=== PATIENT | female | born 1990 | race Hispanic/Latino ===

== ENCOUNTER 2016-11-13 14:50 | Inpatient (IN) | payer OTHER ==
[~2016-11-13] VITALS: Ht 146.7 cm; Wt 76.7 kg
[~2016-11-13 14:50] MED LIST: NOMED; OMEP-113 PO; RANI150T11 PO; REGL PO; SERT25TA6 PO
[2016-11-13] MEDS ORDERED: Lactated Ringer's 1,000 ML IV PRN ×2 (15:19→15:54)
[2016-11-13] MEDS ORDERED: Carboprost 250 mCg/mL Inj IM PRN ×2 (15:20→23:50)
[2016-11-13] MEDS ORDERED: Methylergonovine 0.2 mg/mL Inj IM PRN ×2 (15:20→23:50)
[2016-11-13] MEDS ORDERED: Ondansetron 2 mg/mL 2 mL Inj IVPUSH PRN ×2 (15:20→21:35)
[2016-11-13] MEDS ORDERED: Hemorrhage Kit, Post Partum XX ONE ×3 (15:20→23:50)
[2016-11-13] MEDS ORDERED: Oxytocin 10 Unit/mL Inj IM PRN ×2 (15:20→23:50)
[2016-11-13] MEDS: Lactated Ringer's 1,000 ML IV SCH ×4 (16:54→23:54)
[2016-11-13] MEDS: Oxytocin 30 Units/500 mL LR 30 UNITS in IV Premix 1 EACH IV PRN (16:55)
[2016-11-13] MEDS: Sodium Chloride LOK Flush 10 mL Syringe IVFLUSH PRN ×2 (16:55→20:22)
[2016-11-13 17:00] LABS: Mean Corpuscular Hemoglobin 26.5 pg (27.0-35.0); Mean Corpuscular Volume 79.8 fL (81-100)
[2016-11-13] MEDS ORDERED: CHOL100043 PO (18:38)
[2016-11-13] MEDS ORDERED: PNV1TABL81 PO (18:38)
--- NOTE | 2016-11-13 19:20 | HP ---
[address] [address] HISTORY AND PHYSICAL PATIENT: DELL CAMARILLO : 1990 MR#: [id number] ADMIT: 11/13/2016 JOB ID: [id number] CHIEF COMPLAINT: The patient presented to [facility] for complaint of leaking fluid. HISTORY OF PRESENTING ILLNESS: This is a 26-year-old 4, para 1-1-1-2 at 39 weeks and 6 days with expected date of delivery of November 14, 2016, by last menstrual period and consistent with a nine-week ultrasound. The patient was seen today at the office for routine care. She reported a history of wet underwear since yesterday morning. No history of gush of fluid. Intermittent contractions. No vaginal bleeding. The fluid color was clear. The patient was sent to [facility] for further evaluation. On exam, positive ROM Plus test. Based on the test and the history, the patient was admitted for premature rupture of membranes. PROBLEM LIST DURING THIS : 1. History of delivery at 36-37 weeks after PPROM and induction of labor, followed by a term delivery. 2. Vaginal wall mass at the anterior vaginal wall midline. The patient was referred to the [facility], Dr. Cali. Status post cystoscopy with impression of noncommunicating suburethral cyst or urethral diverticulum with no connection seen on cystoscopy to the urethra. The plan is to aspirate when in labor before delivery. If the mass reoccurs after delivery or it becomes symptomatic, then surgery may be indicated after MRI and a urodynamic study for history of incontinence. 3. Elevated 1 hour GTT but 3 hour GTT was within normal limits. 4. Size more than dates. borderline elvated OTIS earlier in resolved based on October 12, 2016 ultrasound, at 35 weeks and 2 days, OTIS was 14 cm and growth was at 77%, 2903 g, head circumference 36 weeks and 4 days, abdominal circumference 37 weeks. 5. Fetus with renal pelviectasis 9 mm. The plan is to be evaluated postnatally. 6. Group B strep negative on October 12, 2016. PAST OBSTETRIC HISTORY: 1. November 01, 2005: Vaginal delivery at 36-37 weeks after a PROM. Weight 4 pounds. No complications and no epidural. 2. Second was a miscarriage. 3. Third was on April 05, 2009, a spontaneous vaginal delivery at term of a female , 6 pounds, no complications. 4. Fourth is the present . GYNECOLOGIC HISTORY: Last menstrual period February 08, 2016. Regular menstrual cycle. Last menstrual period was regular in time and normal in character and duration, and was not on control. Last Pap smear 2014 at [facility] within normal limits. PAST MEDICAL HISTORY: History of knee pain, history of shoulder strain, history of tension headache, vitamin D deficiency, GERD, depression and was taking sertraline but not currently on any medications, history of fatty liver 2013. PAST SURGICAL HISTORY: Cholecystectomy 2008. FAMILY HISTORY: Diabetes mother and sister. SOCIAL HISTORY: Denies alcohol, smoking, or illicit drug abuse. MEDICATIONS: vitamins and vitamin D. ALLERGIES: No known drug allergies. PHYSICAL EXAMINATION: Vital signs reviewed and within normal limits. General: Alert. Oriented to time, place, and person. Neck: Supple. Chest: Equal air entry bilaterally. No added sounds. Cardiovascular: Regular rate and rhythm. Abdomen: Gravid to palpation. Estimated weight 8 pounds. Lower extremities: +1 edema bilaterally. Normal reflexes. Pelvic: 3 cm, 70%, -2, mid position. Soft. Mena's score of 8. Bedside ultrasound performed to confirm cephalic presentation. Cephalic presentation was confirmed. FHT Category 1, [place]: no regular contractions. LABORATORIES: labs: O positive, rubella immune, RPR nonreactive, hepatitis B surface antigen nonreactive, HIV nonreactive. Urine culture no growth. Multiple organism, most likely contamination. Chlamydia screen and Gonorrhea screen March 14, 2016 negative. Group B strep screen negative on October 12, 2016. Pap smear within normal limits [facility] at [facility]. Diabetes screen 151. Three-hour screen within normal limits. Fasting 75, 1 hour of 149, 2 hours of 121, 3 hours of 108. Hematocrit August 04, 2016 was 35.5%. ASSESSMENT: 1. This is a 26-year-old 4, para 1-1-1-2 at 39 weeks and 6 days dated by last menstrual period and consistent with a nine-week ultrasound, with expected date of delivery of November 14, 2016. 2. Premature rupture of membranes and no signs of active labor. 3. Vaginal wall mass that will be aspirated when in active labor. 4. renal pelviectasis that to be evaluated postnatally. 5. Size more than dates. Growth ultrasound at 35 weeks estimated to be at 77th percentile and WNL OTIS. 6. History of depression controlled without medication. PLAN: Admission. An order for admission with labs was placed. Plan of care was discussed with the patient. Induction of labor with Pitocin is indicated secondary to premature rupture of membranes for over 24 hours. Estimated time of rupture was 7 a.m. on November 12, 2016. Risks and benefits and alternatives of induction were reviewed with the patient. All questions were answered. Informed consent was signed. Will proceed with Pitocin for induction. DARYD
[2016-11-13] MEDS: fentaNYL-PF 50 mCg/mL 2 mL Inj IVPUSH PRN (20:28)
[2016-11-13] MEDS ORDERED: Lactated Ringer's 500 ML IV ONE (21:35)
[2016-11-13] MEDS ORDERED: fentaNYL 2 mCg/mL-Bupiv 0.125% 100 ML EPIDURAL SCH ×2 (21:35→22:45)
[2016-11-13] MEDS ORDERED: Atropine 1 mg/10 mL (Code) Syringe IVPUSH PRN (21:35)
[2016-11-13] MEDS ORDERED: EPHEDrine Sulfate 50 mg/mL Inj IVPUSH PRN (21:35)
--- NOTE | 2016-11-13 21:38 | PCM.HPANE ---
Patient Data Surgeon Admitting Provider:Izzy Griffin MD Attending Provider:Xiomara Tilley MD Primary Care Physician:Izzy Griffin MD Other Provider:Maykel Moralez Anesthesia Reason for Visit LABOR LABOR Ht/WT & BMI Body Mass Index Allergies Coded Allergies: No Known Allergies (Verified , 10/31/05) Uncoded Allergies: No Known Allergies (Allergy, Mild, 10/31/05) Diabetes History Hx Diabetes?: No Medications Reported Medications Cholecalciferol (Vitamin D3) (Vitamin D)1,000 Unit Tablet2,000 Unit PO DAILY #1 BOTTLE Ref 0 11/13/16 Pnv No.122/Iron/Folic Acid ( Multi Tablet)27 Mg Iron-800 Mcg Tablet1 Each PO DAILY 11/13/16 No Historical Medication Ea 02/12/14 Discontinued Reported Medications Omeprazole Magnesium (Omeprazole)20 Mg Capsule.dr20 Mg PO DAILY 30 Days Ref 0 07/24/14 Ranitidine HCl (Ranitidine)150 Mg Qsaaca086 Mg PO BID 30 Days Ref 0 07/24/14 Metoclopramide 5 Mg/5 Ml Syrup10 Mg PO QID PRN For Nausea/Vomiting Ref 0 07/24/14 Sertraline HCl (Sertraline)25 Mg Opzonv63 Mg PO DAILY 30 Days Ref 0 06/22/14 History History of ENT Problems?: No Hx of Heart Problems?: No Cardiovascular History: Denies:: Congestive Heart Failure Hypertension Hx of Respiratory Problem?: No Respiratory History: Denies:: Tuberculosis Hx Neurologic Problems?: No Hx of GI Problems?: Yes Hx of Psycho/Social Problems?: No Hx Surgeries?: Yes (maria [place] carmen) Hx Any Other Health Problems?: No History Blood Transfusions: Denies:: Blood Transfuse Reaction Blood Transfusions Hx Diabetes: No Hx Alcohol Use: NoHx Substance Use: No Smoking Status: Never Smoker Have You Smoked inLast 12 mo: No Stop/Bang Risk Assessment Category Category 1A: Patient has history of documented sleep apnea, and HAS NOT received any narcotic, sedative or anesthesia administration during this stay. Category 1B: Patient has history of documented sleep apnea, and HAS received any narcotic , sedative or anesthesia administration during this stay Category 2: Patient has SUSPECTED Obstructive Sleep Apnea, and HAS received any narcotic , sedative or anesthesia administration during this stay. Category 3: Patient has SUSPECTED Obstructive Sleep Apnea and HAS NOT received narcotic, sedative or anesthesia administration during this stay. Category 4: Outpatient in Procedural Areas with known sleep apnea or who screen positive for High Risk via the STOP/BANG questionnaire. Exam Exam General Appearance: Alert, Oriented X3 HEENT/AIRWAY: MP 2, Neck Movement (FROM) Lungs: Clear to Auscultation, Clear to Percussion Heart: Exam Unremarkable, Regular Rate/Rhythm Meds/Labs/Diagnostics Admission Meds Current Medications Lactated Ringer's (Lr) 1,000 ml @ 125 mls/hr Q8H IV Last administered on t 16:54; Start 11/13/16 at 15:54 Labs Test 11/13/16 16:45 White Blood Count 6.1th/mm3 (3.8-10.1) Red Blood Count 4.60mil/mm3 (3.90-5.20) Hemoglobin 12.2g/dL (12.0-15.6) Hematocrit 36.7% (35.0-46.0) Mean Corpuscular Volume 79.8fL (81-100) Mean Corpuscular Hemoglobin 26.5pg (27.0-35.0) Mean Corpuscular Hemoglobin Concent 33.2% (32.0-37.0) Red Cell Distribution Width 17.1% (12.3-15.4) Platelet Count 205bil/L (150-400) Plan Impression Patient chart reviewed, patient interviewed and anesthestic plan with risks, benefits, and alternatives discussed, and informed consent obtained. ASA Physical Status: ASA2 Mod Systemic Disease Anesthetic Plan: Epidural Bene/Risks/Altern/Consents: Yes HP Complete Prior to Induction: Yes Gino Corado MD Nov 13, 2016 21:38
[2016-11-13] MEDS ORDERED: Benzocaine (Dermoplast) 20% 60 Gm Spray TOPICAL PRN (23:50)
[2016-11-13] MEDS ORDERED: LANOlin HPA 7 Gm Ointment TOPICAL PRN (23:50)
[2016-11-13] MEDS ORDERED: Witch Hazel-Glycerin Pads TOPICAL PRN (23:50)
[2016-11-14] MEDS: Sodium Chloride LOK Flush 10 mL Syringe IVFLUSH SCH ×3 (00:30→16:30)
[2016-11-14] MEDS: fentaNYL-PF 50 mCg/mL 2 mL Inj IVPUSH PRN (01:46)
[2016-11-14] MEDS: Oxytocin 30 Units/500 mL LR 30 UNITS in IV Premix 1 EACH IV PRN (01:49)
[2016-11-14] MEDS: oxyCODONE-Acetamin 5-325 mg Tablet PO PRN ×4 (02:56→23:32)
--- NOTE | 2016-11-14 05:30 | OP ---
[address] [address] OPERATIVE REPORT PATIENT: DELL CAMARILLO : 1990 MR#: [id number] ADMIT: 11/13/2016 JOB ID: [id number] DATE OF SURGERY: 11/13/2016 at 2333. Placenta delivered at 2340. DELIVERY REPORT: PREOPERATIVE DIAGNOSIS(ES): 1. Intrauterine at 39 weeks and 6 days. 2. Premature rupture of membranes. 3. Vaginal wall mass. 4. renal pelviectasis. 5. Size more than date. Estimated weight 77 percentile at 35 weeks.History of borderline polyhydramnios with OTIS of 23, resolved at 35 weeks scan. OTIS 14 cm. 6. History of depression controlled without medications. POSTOPERATIVE DIAGNOSIS(ES): 1. S/P NVD at 39 weeks and 6 days. 2. Premature rupture of membranes. 3. Vaginal wall mass. 4. renal pelvocaliectasis. 5. Size more than date. Estimated weight 77 percentile at 35 weeks.History of borderline polyhydramnios with OTIS of 23, resolved at 35 weeks scan. OTIS 14 cm. 6. History of depression controlled without medications. 7. hemorrhage. PROCEDURE: 1. Spontaneous vaginal delivery with no laceration. 2. Aspiration of suburethral vaginal wall mass prior to delivery. SURGEON: Izzy Griffin MD. COMPLICATIONS: None. OUTCOME: Male delivered in cephalic presentation with Apgars of 9 and 9 at one and five minutes respectively. Weight 3436 g ,equivalent to 7 pounds 9 ounces. Placenta delivered intact with three-vessel cord. ESTIMATED BLOOD LOSS: 350 mL followed by a hemorrhage approximately 1 hour after the delivery with additional 600 mL of blood loss. Total estimated blood loss 950 mL. COMPLICATIONS: hemorrhage. SPECIMEN: Aspirated fluid from the cyst was sent to pathology for evaluation. DESCRIPTION OF PROCEDURE: This is a 26-year-old 4, para 1-1-1-2 who presented at 39 weeks and 6 days with a history of premature rupture of membranes for over 24 hours with no signs of active labor. The patient was started on Pitocin. On admission cervix was 3 cm, 70%, and -2 with position soft with Mena score of 8. So patient was started on Pitocin for favorable cervix and membrane rupture status. The patient progressed in labor to be found to be completely dilated at 2257. The vaginal wall mass was prepped with Betadine x3. Then the fluid was aspirated, approximately 10 cc was aspirated and then an additional 10 cc was drained. Then, patient pushed effectively to deliver via spontaneous vaginal delivery over intact perineum under epidural anesthesia. Delivered a live born male infant in cephalic presentation with Apgars 9 and 9. There was no nuchal cord and no shoulder dystocia. The was placed on the maternal abdomen. Delayed cord clamp was performed after 1 minute. Cord blood was collected for blood typing and placenta delivered spontaneously intact with three-vessel cord. Pitocin was started. Fundal massage was performed. The 800 mcg of Cytotec was placed rectally prophylactically for bleeding secondary to history of uterine distention and risk of hemorrhage. Estimated blood loss at this point, was 350 mL. All instrument and needle counts were correct at this time. and mother were recovering in the delivery room. Called into the patient's room one hour later for gush of bleeding. Uterus was massaged. Fundus was firm but lower uterine atony was palpable by bimanual exam with large clots removed from the vagina and from the cervical os. The patient was given one dose of Methergine and one dose of Hemabate. A second bag of Pitocin with additional 30 units was started. The bleeding slowed down at this time. The uterus was firm. The patient has remained hemostatic additional, 600 mL to delivery blood loss was estimated with a total of 950 mL at this point. Blood pressure 121/73, heart rate 90, 98% saturation on room air. Initial hemoglobin at admission was 12.2 and hematocrit was 36.7%. Continue close monitoring. Ospina catheter to be inserted to monitor I's and O's. If bleeding starts again then we will initiate another IV access. Continue to monitor vital signs and serial H and H. MTDD
[2016-11-14] MEDS: Lactated Ringer's 1,000 ML IV SCH ×4 (05:35→13:35)
[2016-11-14 07:17] LABS: Mean Corpuscular Hemoglobin 26.5 pg (27.0-35.0); Mean Corpuscular Volume 80.9 fL (81-100)
--- NOTE | 2016-11-14 07:30 | PCM.PNOBPP ---
Subjective Date of Service Nov 14, 2016 Lochia: Normal Pain Management: PO pain meds Gastrointestinal: Good Appetite, No N/V Postop Activity: Ambulating in Room Only Labs Laboratory Tests 11/14/16 06:40: Exam Vital Signs Vital Signs: VS reviewed, stable Exam Abdomen: Fundus firm Extremities: No edema General: Alert, Oriented X3 OB Post Assessment/Plan Assessment This is a 26-year-old 4, para 2-1-1-3 1. PPD#1 S/P NVD presented with PROM and was induced with Pitocin. 2. Vaginal wall mass S/P aspiration 3. Post Hemorrhage total EBL 950 ml CBC pending, H/H ordered for 1200 4. renal pelvocaliectasis cedric be the evaluated postnatally. 5. History of depression controlled without medication. 6. Hx of positive PPD 2008 and Rx for 6 months asymptomatic, CXR pending. Izzy Griffin MD Nov 14, 2016 07:15
[2016-11-14] MEDS: Ascorbic Acid 500 mg Tablet PO SCH ×2 (08:01→17:30)
--- NOTE | 2016-11-14 10:48 | DRSVH ---
PROCEDURE: X-RAY CHEST ONE VIEW, PORTABLE ([id number]) INDICATIONS: Follow up T.B TECHNIQUE: One view of the chest was acquired. COMPARISON: [facility], , CHEST 2VW, 02/12/2014, 2:23. FINDINGS: Surgical changes and devices: None. Lungs and pleura: No pleural effusions or pneumothorax. Lungs are clear. Mediastinum: Mediastinal contours appear normal. Heart size is normal. Bones and chest wall: No suspicious bony lesions. Overlying soft tissues appear unremarkable. IMPRESSION: No active pulmonary tuberculosis identified radiographically. Dictated by: Rafa Gomez [facility] Interpreted: Harshla Malik MD on 11/14/2016 at 10:47 Transcribed by: BRI on 11/14/2016 at 10:47 Approved by: Harshal Malik M.D. on 11/14/2016 at 17:46
[2016-11-15] MEDS: Lactated Ringer's 1,000 ML IV SCH ×2 (07:49→09:51)
[2016-11-15] MEDS: Sodium Chloride LOK Flush 10 mL Syringe IVFLUSH SCH (08:30)
[2016-11-15] MEDS ORDERED: FERR-74 PO (09:21)
[2016-11-15] MEDS ORDERED: DOCU-41 PO (09:21)
[2016-11-15] MEDS ORDERED: OXYC1TAB24 PO (09:21)
[2016-11-15] MEDS ORDERED: Ascorbic Acid PO (09:21)
[2016-11-15] MEDS ORDERED: IBUP-1827 PO (09:21)
--- NOTE | 2016-11-15 09:32 | PCM.DIOB ---
Obstetrical Disch Instruction Date of Service: Nov 15, 2016 Dates of Hospitalization Date of Hospital Admission Nov 13, 2016 at 15:08 Providers Admitting Physician: Izzy Griffin MD Primary Care Physician: Izzy Griffin MD Attending Physician: Izzy Griffin MD Discharge Diagnosis Discharge Diagnosis Normal vaginal delivery Post hemorrhage Anemia Problems: Diet Discharge Diet: No restrictions Activity Discharge Activity-General: Pelvic Rest for 6 weeks (no sex, douching nor tampon. ), Balance rest and activity, No lifting >10 pounds for 4-6 weeks Dressing and Incisional Care Hygiene: May shower, Perineal care Follow Up Plan Follow-up Provider (F9): Izzy Griffin MD Follow-up appointment: Weeks (2 weeks ) Call your provider for: Fever or Chills, Shortness of breath, Heavy vaginal bleeding, Heavy bleeding, Epigastric pain, Excessive constipation, Vaginal discomfort, Red painful breasts, Other (Headache, change in vision, epigastric pain, nausea and vomiting, leg swelling. ) Izzy Griffin MD Nov 15, 2016 09:32
[2016-11-15] MEDS: Ascorbic Acid 500 mg Tablet PO SCH (09:45)
[2016-11-15 11:36] VITALS: BP 98/54; PULSE 80; RESP 16
--- NOTE | 2016-11-15 15:09 | PCM.DC.OB ---
Obstetrical Discharge Summary Date of Service Nov 15, 2016 Date of hospital admission Nov 13, 2016 at 15:08 Date of Discharge: Nov 15, 2016 Providers Admitting Physician: Randal Han MD Primary Care Physician: Randal Han MD Attending Physician: Randal Han MD Diagnosis at Time of Discharge Normal vaginal delivery Post hemorrhage Anemia Problems: Hospital Course: This is a 26-year-old 4 now para 2-1-1-3 who presented at 39 weeks and 6 days with a history of premature rupture of membranes for over 24 hours with no signs of active labor. The patient was started on Pitocin and delivered on at 2333 via after aspiration of suburethral vaginal cyst. OUTCOME: Male infant delivered in cephalic presentation with Apgars of 9 and 9 at one and five minutes respectively. Weight 3436 g ,equivalent to 7 pounds 9 ounces. Placenta delivered intact with three-vessel cord. See delivery note for details. DISCHARGE DAY EXAM: day number 2, patient is ambulating, tolerating regular diet without nausea or vomiting and voiding without difficulty. Pain was well controlled. No chest pain, no nausea or vomiting, no headache or change in vision. VS: reviewed and stable. General: AOX3 Resp: EAE B/L CVS: RRR, S1+S2+0 Abd: Fundus firm below the umbilicus. Lochia: normal. Lext: no edema. LABS: CBC Test 11/14/16 06:40 11/15/16 07:50 White Blood Count 13.0th/mm3 (3.8-10.1) Red Blood Count 3.93mil/mm3 (3.90-5.20) Mean Corpuscular Volume 80.9fL (81-100) Mean Corpuscular Hemoglobin 26.5pg (27.0-35.0) Mean Corpuscular Hemoglobin Concent 32.7% (32.0-37.0) Red Cell Distribution Width 16.6% (12.3-15.4) Platelet Count 170bil/L (150-400) Hemoglobin 9.6g/dL (12.0-15.6) Hematocrit 29.7% (35.0-46.0) labs: labs: O positive, rubella immune, RPR nonreactive, hepatitis B surface antigen nonreactive, HIV nonreactive. Chlamydia screen March 14, 2016 negative. Gonorrhea screen March 14, 2016 negative. Group B strep screen negative on October 12, 2016. [facility] smear [facility] normal limits [facility] at [facility]. Diabetes screen 151. Three-hour screen within normal limits. Fasting 75, 1 hour of 149, 2 hours of 121, 3 hours of 108. Hematocrit August 04, 2016 was 35.5%. Disposition: home. Discharge Condition: stable. Diet Discharge Diet: No restrictions Activity Discharge Activity-General: Pelvic Rest for 6 weeks (no sex, douching nor tampon. ), Balance rest and activity, No lifting >10 pounds for 4-6 weeks Dressing and Incisional Care Hygiene: May shower, Perineal care Follow Up Plan Follow-up Provider (F9): Randal Han MD Follow-up appointment: Weeks (2 weeks ) Call your provider for: Fever or Chills, Shortness of breath, Heavy vaginal bleeding, Heavy bleeding, Epigastric pain, Excessive constipation, Vaginal discomfort, Red painful breasts, Other (Headache, change in vision, epigastric pain, nausea and vomiting, leg swelling. ) ([Ascorbic Acid]) 500 MG TABLET 500 MG PO DAILY Prescribed by: RANDAL HAN MD Cholecalciferol (Vitamin D3) (Vitamin D) 1,000 Unit Tablet 2,000 UNIT PO DAILY ( Reported) Last Taken: UNKNOWN on Unknown Date & Time Docusate Sodium (Colace) 100 Mg Capsule 100 MG PO DAILY Prescribed by: RANDAL HNA MD Ferrous Sulfate (Feosol) 325 Mg Tablet 325 MG PO DAILY Prescribed by: RANDAL HAN MD Ibuprofen (Ibuprofen) 600 Mg Tablet 600 MG PO Q6H PRN PRN For Mild Pain Prescribed by: RANDAL HAN MD No Historical Medication (No Historical Medication) Ea (Reported) Pnv No.122/Iron/Folic Acid ( Multi Tablet) 27 Mg Iron-800 Mcg Tablet 1 EACH PO DAILY (Reported) Last Taken: UNKNOWN on Unknown Date & Time oxyCODONE-Acetaminophen 5-325 mg (oxyCODONE-Acetaminophen 5-325 mg) 1 Each Tablet 1-2 TAB PO Q4H PRN PRN For Pain Prescribed by: MD Gaby COULTER Omaima A MD Nov 15, 2016 15:08
--- NOTE | 2016-11-19 14:58 | PATH ---
SURGICAL PATHOLOGY Attending Physician:Izzy Griffin CASE STATUS: Signed Out PATIENT NAME: DELL CAMARILLO PID: [id number] : 1990 DATE COLLECTED:11/13/2016 00:00 SPECIMEN: Vaginal Wall Cyst Fluid CLINICAL HISTORY: Vaginal Wall Cyst Fluid ICD-10 code not given FINAL DIAGNOSIS: VAGINAL WALL CYST FLUID ASPIRATE CYTOLOGY: NEGATIVE FOR MALIGNANT CELLS. PERIPHERAL BLOOD CELLS AND RARE BENIGN SQUAMOUS EPITHELIAL CELLS IDENTIFIED. ICD10 CODE N89.8 GROSS DESCRIPTION: Received fresh on 11/16/2016 is approximately 10 cc of cloudy yellow fluid. Prepared are one cell block and one ThinPrep slide. Vo MICRO DESCRIPTION: Examined are one ThinPrep cytology slide and one H&E-stained cell block slide. These show many peripheral blood cells and rare benign squamous epithelial cells. No atypical or malignant cells identified. ICD-9 CODES: CPT CODES: 1: 81528, 36839 Electronically Signed Out Pennie Barfield MD [facility]ly [facility] [address], [place] [address] Technical component performed at [facility], [facility] [address], [place], [address]
== END 2016-11-15 16:50 | disposition home or self-care (01) | DRG 560 ==
LOC: FBCO 14:50 → FBC 15:08
PROVIDERS: ADMIT Obstetrics & Gynecology; ATTEND Obstetrics & Gynecology
PROC: 10E0XZZ Delivery of Products of Conception, External Approach (ICD-10-PCS; principal; 2016-11-13)
PROC: 0U9 Female Reproductive System, Drainage (ICD-10-PCS; 2016-11-13)
DX: O42.92 Full-term premature rupture of membranes, unspecified as to length of time between rupture and onset of labor (principal); O72.1 Other immediate postpartum hemorrhage; O75.89 Other specified complications of labor and delivery; N89.8 Other specified noninflammatory disorders of vagina; O99.02 Anemia complicating childbirth; Z3A.39 39 weeks gestation of pregnancy; Z37.0 Single live birth

== ENCOUNTER 2017-02-07 10:01 | Day surgery (SDC) | payer MEDICAID ==
[~2017-02-07] VITALS: Ht 149.9 cm; Wt 64.1 kg
[2017-02-07] VITALS (10 sets, daily range): BP systolic 99–118; BP diastolic 58–73; PULSE 69–100; RESP 13–20; O2SAT 97–100
[2017-02-07] MEDS: Lactated Ringer's 1,000 ML IV SCH ×6 (05:00→23:46)
[~2017-02-07 10:01] MED LIST changes: +CeFAZolin Inj 2 GM in IV Premix 1 EACH IV ONE; -NOMED; -OMEP-113 PO; -RANI150T11 PO; -REGL PO; -SERT25TA6 PO
[2017-02-07] MEDS ORDERED: Ondansetron 2 mg/mL 2 mL Inj ONE (10:02)
[2017-02-07] MEDS ORDERED: Dexamethasone 4 mg/mL Inj ONE (10:02)
[2017-02-07] MEDS ORDERED: Propofol 10,000 mCg/mL 20 mL Inj ONE (10:02)
[2017-02-07] MEDS ORDERED: Rocuronium 10 mg/mL 5 mL Inj ONE (10:02)
[2017-02-07] MEDS ORDERED: Lidocaine PF 1% 30 mL Inj ONE (10:02)
[2017-02-07] MEDS ORDERED: fentaNYL-PF 50 mCg/mL 2 mL Inj ONE (10:02)
[2017-02-07] MEDS ORDERED: METHYLENE BLUE 0.5% XX PRN (10:20)
[2017-02-07] MEDS ORDERED: Lactated Ringer's 1,000 ML IV SCH (12:07)
[2017-02-07] MEDS ORDERED: Lactated Ringer's 500 ML IV PRN (12:07)
--- NOTE | 2017-02-07 12:07 | PCM.HPANE ---
Patient Data Date of Service: February 07, 2017 ([id number]) Surgeon Admitting Provider: Attending Provider:Alexis Cali MD Primary Care Physician:Ruben Iglesias MD Other Provider:Maykel Moralez Anesthesia Reason for Visit Urethral Cyst, Urethral Diverticulum Ht/WT & BMI Height (Feet): 4 Height (Inches): 11 Weight (Kilograms): 64.1 Body Mass Index 28.00 Allergies Coded Allergies: No Known Allergies (Verified , 10/31/05) Past Anesthesia History Anesthesia History: Denies:: Anesthesia Reactions ("hitting" after anesthesia) , Fam Anesthesia Reaction Diabetes History Hx Diabetes?: No MRSA MRSA: No Medications Hypertension Medication: No Home Meds Incl Beta Oriana: No Discontinued Reported Medications Cholecalciferol (Vitamin D3) (Vitamin D)1,000 Unit Tablet2,000 Unit PO DAILY #1 BOTTLE Ref 0 11/13/16 Pnv No.122/Iron/Folic Acid ( Multi Tablet)27 Mg Iron-800 Mcg Tablet1 Each PO DAILY 11/13/16 No Historical Medication Ea 02/12/14 Discontinued Scripts Ibuprofen 600 Mg [id number] Mg PO Q6H PRN For Mild Pain #100 TABLET Ref 0 Prov:Izzy Griffin MD 11/15/16 Ferrous Sulfate (Feosol)325 Mg [id number] Mg PO DAILY #90 TABLET Ref 0 Prov:Izzy Griffin MD 11/15/16 [Ascorbic Acid] (Vitamin C)500 MG TABLET No Conflict [id number] Mg PO DAILY #90 Ref 0 Prov:Izzy Griffin MD 11/15/16 Docusate Sodium (Colace)100 Mg [id number] Mg PO DAILY #30 CAPSULE Prov:Izzy Griffin MD 11/15/16 oxyCODONE-Acetaminophen 5-325 mg 1 Each Tablet1-2 Tab PO Q4H PRN For Pain #20 TABLET Prov:Izzy Griffin MD 11/15/16 History History of ENT Problems?: No HEENT History: Denies:: Cataracts Glaucoma Hearing Problem Denture Type: None Teeth Condition: Within Normal Limits Hx of Heart Problems?: No Cardiovascular History: Denies:: AICD Abdominal Aortic Aneurism Atrial Fibrillation Chest Pain Congestive Heart Failure Coronary Artery Disease Edema Heart Murmur Hypertension Irregular Heartbeat Pacemaker Peripheral Vascular Rheumatic Fever Thrombophlebitis Hx of Respiratory Problem?: Yes Respiratory History: Positive for:: Tuberculosis (treated in 2006- ) Denies:: Asthma COPD Emphysema Oxygen Administration Pneumonia Use of C-PAP Machine Use of Inhalers / NEBS Hx Neurologic Problems?: No Neurological History: Denies:: CVA Dementia Dizziness Headaches Multiple Sclerosis Parkinson's Disease Seizures TIA Hx of GI Problems?: Yes Hx of Problems?: No Genitourinary History: Denies:: Kidney Stones Urinary Tract Infection Other Pertinent History: 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 Skin History: Denies:: History Skin Disorders? Pressure Ulcers Hx Musculoskeletal Problems?: Yes Musculoskeletal History: Positive for:: Musculoskeletal Trauma (little bit of back pain since childbirth 10/2016) Denies:: Back Injury Fibromyalgia Myasthenia Gravis Osteoarthritis Hx of Psycho/Social Problems?: No Psycho Social History: Denies:: Anxiety Hx Depression Hx Surgeries?: Yes (maria del carmen, ) Hx Any Other Health Problems?: Yes Other History: Denies:: Cancer Thyroid Disease History Blood Transfusions: Positive for:: Accept Blood Products? Denies:: Blood Transfuse Reaction Blood Transfusions Hx Diabetes: No Hx Alcohol Use: NoHx Substance Use: No Smoking Status: Never Smoker Have You Smoked inLast 12 mo: No Stop/Bang S-Snoring: Do You Snore Loudly: No T-Tired: feel tired, fatigued: No O-Obsered: Observed not breath: No P-Blood Pressure: treated: No B- Body Mass Index > 35 kg/m2: No A- Age over 50: No N- Neck Large Circumference: No G- Gender Male: No ANTONELLA Total Score: 0 ANTONELLA Risk Assessment: Low Risk, <3 Yes Risk Assessment Category Category 1A: Patient has history of documented sleep apnea, and HAS NOT received any narcotic, sedative or anesthesia administration during this stay. Category 1B: Patient has history of documented sleep apnea, and HAS received any narcotic , sedative or anesthesia administration during this stay Category 2: Patient has SUSPECTED Obstructive Sleep Apnea, and HAS received any narcotic , sedative or anesthesia administration during this stay. Category 3: Patient has SUSPECTED Obstructive Sleep Apnea and HAS NOT received narcotic, sedative or anesthesia administration during this stay. Category 4: Outpatient in Procedural Areas with known sleep apnea or who screen positive for High Risk via the STOP/BANG questionnaire. Exam Exam Vital Signs Vital Signs Date Time Temp Pulse Resp B/P Pulse Ox O2 Delivery O2 Flow Rate FiO2 02/07/17 10:26 36 77 20 107/60 97 Room Air General Appearance: Alert, Oriented X3, Cooperative HEENT/AIRWAY: MP 1 Lungs: Clear to Auscultation Heart: Exam Unremarkable Meds/Labs/Diagnostics Admission Meds Current Medications Lactated Ringer's (Lr) 1,000 ml @ 120 mls/hr Q8H20M IV Last administered on t 10:14; Start 02/07/17 at 05:00; Stop 02/07/17 at 13:19 Labs Test 02/07/17 10:40 Hemoglobin 13.3g/dL (12.0-15.6) Hematocrit 38.2% (35.0-46.0) Sodium Level 139mEq/L (134-144) Potassium Level 4.0mEq/L (3.5-5.2) Chloride Level 102mEq/L (97-108) Carbon Dioxide Level 23mmol/L (18-29) Blood Urea Nitrogen 9mg/dL (6-20) Creatinine 0.35mg/dL (0.57-1.00) Estimat Glomerular Filtration Rate 320mL/min (>59) Glucose Level 92mg/dL (60-99) Calcium Level 8.9mg/dL (8.5-10.1) Plan Impression Patient chart reviewed, patient interviewed and anesthestic plan with risks, benefits, and alternatives discussed, and informed consent obtained. NPO per Anesth. Guidelines: Yes ASA Physical Status: ASA2 Mod Systemic Disease Anesthetic Plan: GA Bene/Risks/Altern/Consents: Yes HP Complete Prior to Induction: Yes Lucius Sandy MD February 07, 2017 12:07
[2017-02-07] MEDS ORDERED: Phenylephrine 10,000 mCg/mL Inj IVPUSH PRN (12:10)
[2017-02-07] MEDS ORDERED: HYDROmorphone 1 mg/mL Inj IVPUSH PRN (12:10)
[2017-02-07] MEDS ORDERED: Dexamethasone 4 mg/mL Inj IVPUSH PRN (12:10)
[2017-02-07] MEDS ORDERED: MetoCLOpramide 5 mg/mL 2 mL Inj IVPUSH PRN ×2 (12:10→14:45)
[2017-02-07] MEDS ORDERED: Ondansetron 2 mg/mL 2 mL Inj IVPUSH PRN ×2 (12:10→14:45)
[2017-02-07] MEDS ORDERED: fentaNYL-PF 50 mCg/mL 2 mL Inj IVPUSH PRN (12:10)
[2017-02-07] MEDS ORDERED: EPHEDrine Sulfate 50 mg/mL Inj IVPUSH PRN (12:10)
[2017-02-07] MEDS ORDERED: Lidocaine 1%-Epi 1:100,000 20 mL Inj INJ ONE (12:55)
[2017-02-07] MEDS ORDERED: diphenhydrAMINE 25 mg Capsule PO PRN (14:45)
[2017-02-07] MEDS ORDERED: Alum-Mag Hydrox-Simeth 30 mL Suspension PO PRN (14:45)
[2017-02-07] MEDS ORDERED: Acetaminophen IV 1,000 MG in IV Premix 1 EACH IV PRN (14:45)
--- NOTE | 2017-02-07 14:51 | PCM.ANEP1 ---
Post Anesthesia PACU Phase 1 Assessment Vital Signs 100, 100%, 115/69, 16, 36.5 Vital Signs Date Time Temp Pulse Resp B/P Pulse Ox O2 Delivery O2 Flow Rate FiO2 02/07/17 10:26 36 77 20 107/60 97 Room Air Anesthetic Administered: GA Level of Alertness: Awake, talking POLK's with Equal Strength: Yes Pain: No Nausea or Vomiting: No CV Function and Hydration: Yes Airway Device: NONE Oxygen Delivery: Simple Mask Lungs: Clear to Auscultation Dermatome Level: Full Sensation Summary UNEVENTFUL GETA PACU Phase 2 Assessment Complications: No Follow up Care: No Patient Instructions Provided: N/A Lucius Sandy MD February 07, 2017 14:51
--- NOTE | 2017-02-07 16:15 | NUR ---
Post Op Pt arrived to [facility] rm 1011 at approx 1555. Rec'd report from Zain in PACU. Pt arrived via gurney and was able to scoot herself over to the hospital bed. pt is a&ox3, drowsy, but answers questions, denies pain or nausea. Ospina patent and draining to gravity, small amount of serous/sang fluid on ron pad. IV running LR at 125mls/hr. Pt oriented to room and call light. Bed is down and in locked position. Encouraged pt to take small sips of water to start to help avoid nausea.
[2017-02-07] MEDS: oxyCODONE-Acetamin 5-325 mg Tablet PO PRN (17:17)
--- NOTE | 2017-02-07 18:30 | PCM.SURGOP ---
Surgical Operative Report Date of Service: February 07, 2017 Pre Operative Diagnosis suburethral cyst Post Operative Diagnosis same Procedure: Excision of urethral cyst, cystourethroscopy Surgeon and Jewel Stripper: Surgeon: Alexis Cali MD Assistants: Izzy Garcia MD Indication for Procedure She had a vaginal on 11/13/16. The urethral cyst was aspirated during the second stage of labor. She complains of recurrece of the urethrovaginal mass for several months now. She is sexually active. She denies cyst pain, cyst rupture, vaginal discharge, incontinence, dysuria, fever or pain. She feels the size of the mass is the same size as before. She has a history of urge incontinence which predated the onset of the mass. She denies urinary retention. Denies hx of STD's. Urine cultures for GC and Chl are negative. Urodynamics did not reveal stress incontinence. Both in-office cystoscopy and Pelvic MRI did not reveal the presence of a diverticular connection. I consented her for a repair of urethral diverticulum (ie. partial ablation) or excision of suburethral cyst. She may also require a Martius fat pad transposition if extra tissue layers are needed for adequate closure. The patient signed the consent form. She agreed with the risks, benefits, and alternatives to surgery. The risks included but not limited to recurrence or persistence of urethral cyst, development of incontinence, development of voiding dysfunction, development of urinary urgency, urgency incontinence, frequency, and need for intermittent self-catheterization or prolonged indwelling catheterization, injury to other organs including bladder, urethra, vulva, nerves or blood vessels. Need for blood transfusion, need for fistula repair. Development of vaginal scarring, dyspareunia, recurring pain, hematoma formation, urinary tract infection, cellulitis, necrotizing fascitis, and medical risks including myocardial infarction, stroke or VTE. The patient understood the risks and benefits and consented to surgery. Findings: see dictation Procedure Details SURGICAL TECHNIQUE: The patient was brought to the operating room and was placed under general anesthesia. She was prepped and draped in the normal fashion for vaginal surgery with the legs in Yellofin stirrups. She was given a dose of IV ancef preoperatively. Cystourethroscopy was first performed. Examination of the urethra revealed no obvious diverticular connection between the cyst and the urethra despite firmly milking the cyst. 1% lidocaine with one in 100,000 of epinephrine was infiltrated along with vagina overlying the urethral cyst. The Cyst was approximately 3 to 4 cm in diameter. An inverted U incision on the anterior vaginal wall was made using point cautery. Using sharp dissection with Metzembaum scissors, the anterior vaginal wall was mobilized off the cyst wall. Then a midline vertical incision was made into the ron-urethral fascia. Sharp dissection was used to create two flaps of periurethral fascia which would be used later for closure. The urethral cyst was then entered which liberated clear serous fluid. The contents of the cyst was examined. Minor sacculations were noted. These were incised to allow a gloved finger to be inserted to the floor of the cyst. There was no diverticular connection seen. The cyst was completely excised from its fascial base attachments using sharp dissection. The specimen was sent to pathology. We proceeded with cystoscopy. Re-examination of the urethra did not reveal any presence of a urethral defect. The Periurethral fascia was layed down and sutured in a "vest over pants" fashion using 2-0 Vicryl in an interrupted fashion. Hemostasis was achieved by using point cautery as well as fibrin solution. Finally the vagina was reapproximated using 3-0 Vicryl suture in an interrupted fashion. The estimated blood loss was 50 mL. There were no complications. A 16 Hungarian catheter was left indwelling. All sponges in instruments were accounted for. She was taken to the recovery room in stable condition. Complications There were no periprocedural complications identified. Surgical Specimen Removed: Yes Specimen sent to Pathology: Yes Surgical Specimen description: urethral cyst Anesthetic Plan: GA Grafts, Implants: None Output, Estimated Blood Loss: 50 (ml EBL) Blood Administration during lopez: No Drains: None Catheters: Urethral 2 Way Ospina Post Operative Plan d/c home in am as she requires voiding trial tomorrow. She She may decide to go home tonight copies to: Izzy Griffin MD; Alexis Cali MD, William Andre Z MD February 07, 2017 18:30
[2017-02-08 00:12] VITALS: BP 110/68; PULSE 83; RESP 16; O2SAT 97
[2017-02-08] MEDS: oxyCODONE-Acetamin 5-325 mg Tablet PO PRN (00:43)
--- NOTE | 2017-02-08 03:17 | NUR ---
Pain/Activity Pt reported pain mid shift 12/31, rec'd prn percocet per orders. Encouraged Pt to dangle at side of bed, she was reluctant but then agreed after letting this nurse know her legs felt heavy. PP+, equal warmth BL, 0 edema, o pain. MD aware, stated normal from her procedure and length of time her legs were up in stirrups. Advised Pt to flex and extend feet/legs while lying in bed, legs also elevated on pillow. ok'd to remove the SCD's for the night as they are bothering Pt legs
[2017-02-08 04:25] VITALS: BP 97/59; PULSE 69; RESP 16; O2SAT 97
[2017-02-08 05:35] LABS: BASOPHILS % (AUTO) 0.1 % (0-3); EOSINOPHILS % (AUTO) 0.1 % (0-5); MONOCYTES % (AUTO) 7.8 % (4-12); Mean Corpuscular Hemoglobin 27.9 pg (27.0-35.0); Mean Corpuscular Volume 83.6 fL (81-100); NEUTROPHILS % (AUTO) 69.7 % (40-74); Platelet Count 283 bil/L (150-400)
[2017-02-08] MEDS: Lactated Ringer's 1,000 ML IV SCH (06:45)
[2017-02-08] MEDS ORDERED: Senna-Docusate 8.6-50 mg Tablet PO SCH (08:30)
--- NOTE | 2017-02-08 10:46 | NUR ---
Void Trial Pt at 0930, c/o pressure to bladder and the need to void. Pt with villalobos present but no output noted in bag, bladder scan revealed >500cc per SPOOL SANDER. This RN, removed packing at 0930 and manipulated villalobos resulting in ~500cc out. Dr. Cali present and made aware of this. At 1045, bladder scan performed prior to void trial start. Revealed ">93cc" but no additional information as to how much. Pt uncomfortable but able to tolerate the 300cc instillation of saline. Villalobos dc'd and pt up to BR. Voided 500cc within 10minutes. Pt states feeling like she was able to empty her bladder completely without issue. Mesh underwear and peripad in place for spotting, Pt back to bed, care continues.
--- NOTE | 2017-02-08 12:29 | PCM.DIGYN ---
Surgical Discharge Instruction Dates of Hospitalization Date of Hospital Admission 02/07/17 to 02/08/17 outpatient in bed (overnight stay) Providers Admitting Physician: Primary Care Physician: Ruben Iglesias MD Attending Physician: Alexis Cali MD Diagnosis at Time of Discharge Diagnosis at time of discharge suburethral cyst Post-operative diagnosis same Problems: Diet Discharge Diet: No restrictions Activity Discharge Activity-General: Restrict lifting to no greater than (10 lbs for 4- 6 wk) Dressing and Incisional Care Hygiene: May shower Additional Instructions Discharge Instructions pump and dump breast milk today; can resume tomorrow Follow Up Plan Follow-up appointment: Weeks ([address] Cali (also in 1 wk with his MA if she goes home with a villalobos catheter)) Call your provider for: Fever, Chills, Shortness of breath, Heavy vaginal bleeding, Wound redness, Increasing pain Alexis Cali MD February 08, 2017 12:29
--- NOTE | 2017-02-08 12:38 | PCM.PNSURG ---
Subjective Date of Service: February 08, 2017 Date of Service: February 08, 2017 Visit Information: Reason for Visit Urethral Cyst, Urethral Diverticulum Surgery/Surgery Date Post-Op Day # Date of Admission: Hospital Day # Subjective: AVSS pt not ambulated yet this am; encouraged to do so minimal pain; just received 1 percocet last night wishes to breastfeed OR explained po intake tolerated Gastrointestinal: Good Appetite Pain Management: PO Objective Intake and Output- Last 8 Hour 02/08/17 Cumulative From/Thru 07:00 02/04/17 14:10 - 02/08/17 06:14 Intake Total 2027 ml 2886 ml Output Total 575 ml 820 ml Balance 1452 ml 2066 ml Intake Oral 880 ml 998 ml IV Total 1147 ml 1888 ml Output Urine Total 575 ml 720 ml Estimated Blood Loss 100 ml # Bowel Movements 0 0 General: Alert, Oriented X3, Cooperative Lungs: Clear to Auscultation Abdomen: Benign Catheters: Urethral [address] Way Villalobos Result Diagram: 02/08/17 0500 02/07/17 1040 Assessment & Plan Impression stable for discharge Problems: Plan voiding trial this am f/u in 2 wk (also in 1 wk if home with villalobos) may breastfeed in 24 hr (pump and dump today) Resuscitation Status: CPR: Attempt Resuscitation copies to: Izzy Griffin MD; Ruben Iglesias MD; Alexis Cali MD, William Andre Z MD February 08, 2017 12:38
--- NOTE | 2017-02-08 15:11 | NUR ---
Discharge Pt discharged to home with at 1450. Left via wc to vehicle. A&Ox3, POLK, VSS, IV dcd intact, Pain present but tolerable without pain medication. CareNotes provided on dc medications and s/sx to watch and seek medical attention for. Hard copy script provided to pt, All personal belongings in hand at dc. No questions/concerns left unanswered at time of dc.
--- NOTE | 2017-02-11 15:19 | PATH ---
SURGICAL PATHOLOGY Attending Physician:Alexis Cali, CASE STATUS: Signed Out PATIENT NAME: DELL CAMARILLO PID: [id number] : 1990 DATE COLLECTED:02/07/2017 00:00 SPECIMEN: CYST, NOS CLINICAL HISTORY: URETHRAL CYST, NO DIVERTICULAR CONNECTION NOTED 1). SUBURETHRAL CYST FINAL DIAGNOSIS: 1.SUBURETHRAL CYST: BENIGN CYST MOST CONSISTENT WITH A SKENE GLAND DUCT. NO EVIDENCE OF MALIGNANCY OR DYSPLASIA. ICD10 N36.8 GROSS DESCRIPTION: The specimen is received in formalin, labeled with the patient's name, sublabeled as suburethral cyst and consists of a case of garner smooth shiny and rubbery fibromembranous tissue (3.2 x 2.5 x 1.5 cm). Section code: (A, B) tissue, cervix sectioned, represented. 02/09/17 JM MICRO DESCRIPTION: The cyst wall consists of fibromuscular tissue. The cyst is lined in areas by multiple layers of benign transitional cells. In other areas, the cyst is lined by a mixed inflammatory infiltrate. Rare collections of histiocytes are found. The findings are most consistent with a cyst arising in a skene gland duct. ICD-9 CODES: CPT CODES: 1: 10309 Electronically Signed Out Elliott Olson MD [facility] [address], [place] [address] Technical component performed at [facility], [address] [place] [address] Ave[address], [place], [address]
== END 2017-02-08 14:50 | disposition home or self-care (01) ==
LOC: SAS 10:01 → OSC 15:50 → SAS 02-08 14:50
PROVIDERS: ATTEND Obstetrics & Gynecology
DX: N36.8 Other specified disorders of urethra (principal); N36.1 Urethral diverticulum; N39.41 Urge incontinence; R15.9 Full incontinence of feces; Z87.440 Personal history of urinary (tract) infections
CPT/HCPCS: 36415; 53230; 57135; 80048; 85014; 85018; 85025; 86850; 88304; J0690; J1100; J1885; J2250; J2405; J3010; J7120